=== PATIENT | female | born 1980 | race African-American/Black ===

== ENCOUNTER → 2019-06-08 | Outpatient (CLI) | payer OTHER ==
--- NOTE | 2019-06-08 12:13 | RADIOLOGY REPORT (SQ) ---
EXAM DESCRIPTION: BARIUM SWALLOW ESOPHAGUS COMPLETED DATE/TIME: 06/08/2019 9:20 am REASON FOR STUDY: EPIGASTRIC PAIN R10.13 EPIGASTRIC PAIN COMPARISON: None. TECHNIQUE: Under fluoroscopic guidance, patient ingested water soluble contrast. Fluoroscopic spot i mages and routine radiographic images acquired and stored on PACS. LIMITATIONS: None. FLUOROSCOPY TIME: 1 minutes 1 second of fluoroscopy was used. 20 images saved to PACS. FINDINGS: NEUROMUSCULAR COORDINATION OF SWALLOW: Normal. No aspiration. ESOPHAGEAL MOTILITY: Normal peristalsis. No esophageal spasm. ESOPHAGEAL MUCOSA: Normal mucosa without masses or ulceration. GASTRO-ESOPHAGEAL JUNCTION: Small sliding hiatal hernia with mild reflux identified. NON-GI TRACT STRUCTURES: No significant finding. OTHER: Stated post surgical changes to the stomach from previous gastric sleeve surgery. There is no evidence of extravasation or leak of contrast. No strictures. The gastric strict sleeve is larger in diameter than suspected. There are no previous exams to compare too. IMPRESSION: STATUS POST GASTRIC SLEEVE BARIATRIC SURGERY WITHOUT EVIDENCE OF EXTRAVASATION OR LEAK O F CONTRAST. NO STRICTURES ARE IDENTIFIED. GASTRIC DIAMETER APPEARS LARGER THAN SUSPECTED ALTHOUGH T HERE ARE NO COMPARISON STUDIES AVAILABLE. COMMENT: Quality ID [id number]: Final reports for procedures using fluoroscopy that document radiation exp osure indices, or exposure time and number of fluorographic images (if radiation exposure indices are not available) TECHNICAL DOCUMENTATION: JOB ID: [id number] 2010 [employer]- All Rights Reserved Reading location - IP/workstation name: [id number]
== END ==
LOC: RAD 08:43
PROVIDERS: ATTEND Surgery
DX: R10.13 Epigastric pain (principal)
CPT/HCPCS: 74220